=== PATIENT | male | born 1950 | race Caucasian/White ===

== ENCOUNTER 2022-05-16 14:01 | Outpatient (CLI) | payer MEDICARE, SELFPAY ==
[2022-05-16 20:04] LABS: Kit Draw Collected
== END 2022-05-16 14:02 | disposition home or self-care (01) ==
LOC: ANHGOSHLAB 14:03
PROVIDERS: PCP Family Medicine; Visit Provider Family Medicine
DX: E78.5 Hyperlipidemia, unspecified (principal); I10 Essential (primary) hypertension
CPT/HCPCS: 36415